=== PATIENT | male | born 1940 | race Caucasian/White ===

== ENCOUNTER 2018-03-03 11:03 | Emergency (ER) | payer MEDICARE, MEDICAID ==
[~2018-03-03] VITALS: Ht 182.9 cm; Wt 83.2 kg
[~2018-03-03 11:03] MED LIST: AMLO5TAB2 PO; FURO40TA6 PO; METO25TA35 PO; POLY17PO5 PO; POTA20PA25 PO; TAMS-11 PO
[2018-03-03] MEDS ORDERED: ALBUTEROL/IPRATROPIUM 2.5MG/0.5MG, 3 ML NPPB ONE (12:30)
[2018-03-03] MEDS ORDERED: ALBUTEROL/IPRATROPIUM 2.5MG/0.5MG, 3 ML ONE (12:32)
[2018-03-03 12:59] LABS: MICROSCOPIC AUTO
[2018-03-03 13:34] VITALS: BP 147/80
== END 2018-03-03 13:35 | disposition home or self-care (01) ==
LOC: ED 12:51
DX: N40.1 Benign prostatic hyperplasia with lower urinary tract symptoms (principal); R33.8 Other retention of urine; Z76.0 Encounter for issue of repeat prescription; J43.9 Emphysema, unspecified; I11.0 Hypertensive heart disease with heart failure; Z94.4 Liver transplant status
CPT/HCPCS: 71046; 81001; 94640; 99285; J7512; J7620

== ENCOUNTER 2018-09-09 18:13 | Inpatient (IN) | payer MEDICARE, MEDICAID ==
[~2018-09-09] VITALS: Ht 182.9 cm; Wt 80.5 kg
[~2018-09-09 18:13] MED LIST changes: -AMLO5TAB2 PO; +AMLO5TAB7 PO
[2018-09-09 19:01] LABS: BASOPHILS # (AUTO) 0.07 x10^3/uL (0-0.1); BASOPHILS % (AUTO) 1 % (0-1); EOSINOPHILS # (AUTO) 0.04 x10^3/uL (0-0.4); EOSINOPHILS % (AUTO) 1 % (1-7); LYMPHOCYTES # (AUTO) 1.33 x10^3/uL (1-3.4); LYMPHOCYTES % (AUTO) 16 % (22-44); MD NO; MEAN CORPUSCULAR HEMOGLOBIN 32.6 pg (27.5-34.5); MEAN CORPUSCULAR HGB CONC 34.3 g/dL (33.2-36.2); MEAN CORPUSCULAR VOLUME 95.1 fL (81-97); MEAN PLATELET VOLUME 8.3 fL (7.4-10.4); MONOCYTES % (AUTO) 5 % (2-9); NEUTROPHILS # (AUTO) 6.51 x10^3/uL (1.8-6.8); NEUTROPHILS % (AUTO) 78 % (42-75); PLATELET COUNT 190 x10^3/uL (130-400); RED BLOOD COUNT 4.91 x10^6/uL (4.38-5.82)
[2018-09-09 19:14] LABS: ALBUMIN 3.4 g/dL (3.4-5.0); ANION GAP 7 mmol/L (5-15); CALCIUM 8.7 mg/dL (8.5-10.1); CHLORIDE 104 mmol/L (98-107)
[2018-09-09 19:20] LABS: ALANINE AMINOTRANSFERASE 51 U/L (12-78); ALKALINE PHOSPHATASE 77 U/L (45-117); CREATININE 1.73 mg/dL (0.7-1.3); TOTAL PROTEIN 8.2 g/dL (6.4-8.2)
[2018-09-09 20:37] LABS: TROPONIN I < 0.015 ng/mL (0.000-0.045)
[2018-09-09] MEDS ORDERED: DIPHENHYDRAMINE 25 MG CAPSULE PO PRN (21:30)
[2018-09-09] MEDS ORDERED: ONDANSETRON ODT 4 MG PO PRN (21:30)
[2018-09-09] MEDS ORDERED: LIDODERM 5% PATCH TD PRN (21:30)
[2018-09-09] MEDS ORDERED: GABAPENTIN 300 MG CAPSULE PO PRN (21:30)
[2018-09-09] MEDS ORDERED: POLYETHYLENE GLYCOL 17 GM PACKET PO PRN (21:30)
[2018-09-09] MEDS ORDERED: hydrALAzine 20 MG/ML, 1ML IVPush PRN (21:30)
[2018-09-09] MEDS ORDERED: DOCUSATE 100 MG CAPSULE PO PRN (21:30)
[2018-09-09 21:55] VITALS: BP 156/87
[2018-09-09] MEDS: SODIUM CHLORIDE 0.9% 1,000 ML IV SCH (22:16)
[2018-09-09] MEDS: AMLODIPINE 5 MG TABLET PO SCH (22:17)
[2018-09-09] MEDS: HEPARIN 5,000 UNITS/ML, 1ML SQ SCH (22:17)
[2018-09-09 23:51] LABS: RAPID INFLUENZA A Negative (Negative); RAPID INFLUENZA B Negative (Negative)
[2018-09-09 23:53] LABS: HEMOGLOBIN A1C 4.6 % (4.2-6.3)
[2018-09-10 01:45] VITALS: BP 127/71
[2018-09-10] MEDS: HEPARIN 5,000 UNITS/ML, 1ML SQ SCH ×3 (05:30→20:41)
[2018-09-10] MEDS: METOPROLOL TARTRATE 25 MG TABLET PO SCH ×2 (05:45→17:38)
[2018-09-10 07:37] VITALS: BP 129/69
[2018-09-10] MEDS: TAMSULOSIN 0.4 MG CAP.ER.24H PO SCH (09:06)
[2018-09-10] MEDS: POTASSIUM CHLORIDE 20 MEQ TAB.ER.PRT PO SCH (09:06)
[2018-09-10] MEDS: AMLODIPINE 5 MG TABLET PO SCH ×2 (09:06→20:41)
[2018-09-10] MEDS: FUROSEMIDE 40 MG TABLET PO SCH (09:06)
[2018-09-10] MEDS: ALBUTEROL/IPRATROPIUM 2.5MG/0.5MG, 3 ML NPPB PRN ×2 (09:40→19:11)
[2018-09-10 12:39] VITALS: BP 152/78
[2018-09-10] MEDS: SODIUM CHLORIDE 0.9% 1,000 ML IV SCH (12:42)
[2018-09-10] MEDS ORDERED: PHARMACY MAY ADJ FOR RENAL FX MC PRN (13:00)
[2018-09-10 14:21] LABS: THYROID STIMULATING HORMONE 1.01 mIU/L (0.358-3.740)
[2018-09-10] MEDS: FOLIC ACID 1 MG TABLET PO SCH (16:10)
[2018-09-10] MEDS: THIAMINE 100MG TABLET PO SCH (16:10)
[2018-09-10] MEDS: GABAPENTIN 300 MG CAPSULE PO SCH ×2 (16:11→20:41)
[2018-09-10 20:12] VITALS: BP 145/75
[2018-09-11 01:45] VITALS: BP 144/75
[2018-09-11] MEDS: SODIUM CHLORIDE 0.9% 1,000 ML IV SCH ×2 (03:19→16:14)
[2018-09-11 05:39] VITALS: BP 138/64
[2018-09-11] MEDS: HEPARIN 5,000 UNITS/ML, 1ML SQ SCH ×3 (05:41→19:58)
[2018-09-11] MEDS: METOPROLOL TARTRATE 25 MG TABLET PO SCH ×2 (05:41→17:35)
[2018-09-11 07:37] VITALS: BP 136/67
[2018-09-11] MEDS: GABAPENTIN 300 MG CAPSULE PO SCH ×3 (08:44→19:58)
[2018-09-11] MEDS: FOLIC ACID 1 MG TABLET PO SCH (08:44)
[2018-09-11] MEDS: TAMSULOSIN 0.4 MG CAP.ER.24H PO SCH (08:44)
[2018-09-11] MEDS: FUROSEMIDE 40 MG TABLET PO SCH (08:44)
[2018-09-11] MEDS: THIAMINE 100MG TABLET PO SCH (08:44)
[2018-09-11] MEDS: POTASSIUM CHLORIDE 20 MEQ TAB.ER.PRT PO SCH (08:44)
[2018-09-11] MEDS: AMLODIPINE 5 MG TABLET PO SCH ×2 (08:44→19:58)
[2018-09-11 14:07] VITALS: BP 131/72
[2018-09-11 15:58] LABS: ANION GAP 6 mmol/L (5-15); CHLORIDE 108 mmol/L (98-107)
[2018-09-11 15:59] LABS: BASOPHILS # (AUTO) 0.04 x10^3/uL (0-0.1); BASOPHILS % (AUTO) 1 % (0-1); EOSINOPHILS # (AUTO) 0.05 x10^3/uL (0-0.4); EOSINOPHILS % (AUTO) 1 % (1-7); LYMPHOCYTES # (AUTO) 1.43 x10^3/uL (1-3.4); LYMPHOCYTES % (AUTO) 15 % (22-44); MD NO; MEAN CORPUSCULAR HEMOGLOBIN 32.9 pg (27.5-34.5); MEAN CORPUSCULAR HGB CONC 34.6 g/dL (33.2-36.2); MEAN CORPUSCULAR VOLUME 95.2 fL (81-97); MEAN PLATELET VOLUME 8.4 fL (7.4-10.4); MONOCYTES # (AUTO) 0.34 x10^3/uL (0.2-0.8); MONOCYTES % (AUTO) 4 % (2-9); NEUTROPHILS # (AUTO) 7.84 x10^3/uL (1.8-6.8); NEUTROPHILS % (AUTO) 81 % (42-75); PLATELET COUNT 171 x10^3/uL (130-400); RED BLOOD COUNT 4.01 x10^6/uL (4.38-5.82); RED CELL DISTRIBUTION WIDTH 14.5 % (9.4-14.8)
[2018-09-11] MEDS: AMITRIPTYLINE 10 MG TABLET PO SCH (19:58)
[2018-09-11 20:33] VITALS: BP 110/58
[2018-09-12 01:30] VITALS: BP 129/70
[2018-09-12 04:54] LABS: ANION GAP 6 mmol/L (5-15); CHLORIDE 110 mmol/L (98-107); CREATININE 1.42 mg/dL (0.7-1.3)
[2018-09-12 04:56] LABS: BASOPHILS # (AUTO) 0.04 x10^3/uL (0-0.1); BASOPHILS % (AUTO) 1 % (0-1); EOSINOPHILS # (AUTO) 0.12 x10^3/uL (0-0.4); EOSINOPHILS % (AUTO) 2 % (1-7); LYMPHOCYTES # (AUTO) 1.23 x10^3/uL (1-3.4); LYMPHOCYTES % (AUTO) 23 % (22-44); MD NO; MEAN CORPUSCULAR HEMOGLOBIN 31.9 pg (27.5-34.5); MEAN CORPUSCULAR HGB CONC 33.8 g/dL (33.2-36.2); MEAN CORPUSCULAR VOLUME 94.3 fL (81-97); MEAN PLATELET VOLUME 8.6 fL (7.4-10.4); MONOCYTES # (AUTO) 0.26 x10^3/uL (0.2-0.8); MONOCYTES % (AUTO) 5 % (2-9); NEUTROPHILS % (AUTO) 69 % (42-75); PLATELET COUNT 158 x10^3/uL (130-400); RED BLOOD COUNT 3.73 x10^6/uL (4.38-5.82); RED CELL DISTRIBUTION WIDTH 14.9 % (9.4-14.8)
[2018-09-12] MEDS: METOPROLOL TARTRATE 25 MG TABLET PO SCH ×2 (05:11→17:38)
[2018-09-12] MEDS: HEPARIN 5,000 UNITS/ML, 1ML SQ SCH ×3 (05:11→22:12)
[2018-09-12] MEDS: SODIUM CHLORIDE 0.9% 1,000 ML IV SCH ×2 (05:12→17:38)
[2018-09-12 07:56] VITALS: BP 123/78
[2018-09-12] MEDS: POTASSIUM CHLORIDE 20 MEQ TAB.ER.PRT PO SCH (09:37)
[2018-09-12] MEDS: FOLIC ACID 1 MG TABLET PO SCH (09:37)
[2018-09-12] MEDS: GABAPENTIN 300 MG CAPSULE PO SCH ×3 (09:38→22:12)
[2018-09-12] MEDS: THIAMINE 100MG TABLET PO SCH (09:38)
[2018-09-12] MEDS: AMLODIPINE 5 MG TABLET PO SCH ×2 (09:38→21:00)
[2018-09-12] MEDS: TAMSULOSIN 0.4 MG CAP.ER.24H PO SCH (09:38)
[2018-09-12] MEDS: FUROSEMIDE 40 MG TABLET PO SCH (09:38)
[2018-09-12 13:59] VITALS: BP 134/69
[2018-09-12 19:47] VITALS: BP 120/64
[2018-09-12 22:05] VITALS: BP 137/73
[2018-09-12] MEDS: AMITRIPTYLINE 10 MG TABLET PO SCH (22:12)
[2018-09-13 00:11] VITALS: BP 120/69
[2018-09-13 05:25] VITALS: BP 122/65
[2018-09-13] MEDS: METOPROLOL TARTRATE 25 MG TABLET PO SCH (05:27)
[2018-09-13] MEDS: HEPARIN 5,000 UNITS/ML, 1ML SQ SCH (05:28)
[2018-09-13 05:46] LABS: ANION GAP 8 mmol/L (5-15); CHLORIDE 110 mmol/L (98-107)
[2018-09-13 05:57] LABS: CALCIUM 8.6 mg/dL (8.5-10.1); CREATININE 1.53 mg/dL (0.7-1.3)
[2018-09-13 07:33] VITALS: BP 132/80
[2018-09-13] MEDS: FOLIC ACID 1 MG TABLET PO SCH (09:31)
[2018-09-13] MEDS: GABAPENTIN 300 MG CAPSULE PO SCH (09:31)
[2018-09-13] MEDS: THIAMINE 100MG TABLET PO SCH (09:31)
[2018-09-13] MEDS: FUROSEMIDE 40 MG TABLET PO SCH (09:31)
[2018-09-13] MEDS: TAMSULOSIN 0.4 MG CAP.ER.24H PO SCH (09:31)
[2018-09-13] MEDS: AMLODIPINE 5 MG TABLET PO SCH (09:31)
[2018-09-13] MEDS ORDERED: PRED20TA PO (11:05)
[2018-09-13] MEDS ORDERED: ALBU18HF INH (11:05)
[2018-09-13] MEDS ORDERED: GABA300C10 PO (11:05)
[2018-09-13] MEDS ORDERED: AMIT10TA PO (11:05)
[2018-09-13 13:54] VITALS: BP 149/93
== END 2018-09-13 14:34 | disposition home health service (06) | DRG 73 ==
LOC: ED 19:58 → EDIP 20:08 → 4EST 21:18 → UNDODISIN 09-13 13:27
PROVIDERS: ADMIT Hospitalist; ATTEND Hospitalist
DX: G62.1 Alcoholic polyneuropathy (principal); N17.0 Acute kidney failure with tubular necrosis; I13.0 Hypertensive heart and chronic kidney disease with heart failure and stage 1 through stage 4 chronic kidney disease, or unspecified chronic kidney disease; I50.32 Chronic diastolic (congestive) heart failure; R17 Unspecified jaundice; Z94.4 Liver transplant status; D69.2 Other nonthrombocytopenic purpura; F15.90 Other stimulant use, unspecified, uncomplicated; F17.200 Nicotine dependence, unspecified, uncomplicated; F32.9 Major depressive disorder, single episode, unspecified; J44.9 Chronic obstructive pulmonary disease, unspecified; N18.9 Chronic kidney disease, unspecified; N40.0 Benign prostatic hyperplasia without lower urinary tract symptoms; M72.2 Plantar fascial fibromatosis; F10.10 Alcohol abuse, uncomplicated; Y90.9 Presence of alcohol in blood, level not specified
CPT/HCPCS: 36415; 71045; 80048; 80053; 82550; 82607; 82962; 83036; 83735; 83880; 84443; 84484; 85025; 86592; 87400; 87806; 93306; 93922; 93970; 94640; 99285; G0378; J1644; J7620; G0475; J7030; J7512; Q0163

== ENCOUNTER 2018-09-26 18:09 | Inpatient (IN) | payer MEDICARE, MEDICAID ==
[~2018-09-26] VITALS: Ht 182.9 cm; Wt 75.0 kg
[~2018-09-26 18:09] MED LIST changes: +ALBU18HF INH; +AMIT10TA PO; +GABA300C10 PO; +PRED20TA PO
[2018-09-26] MEDS: SODIUM CHLORIDE 0.9% 1,000 ML IV ONE ×2 (18:16→20:00)
[2018-09-26] MEDS ORDERED: SODIUM CHLORIDE FLUSH 10ML SYR IVF ONE (18:30)
[2018-09-26] MEDS ORDERED: SODIUM CHLORIDE 0.9% 1,000ML IVBOLUS ONE (18:30)
[2018-09-26 19:19] LABS: BASOPHILS % (AUTO) 0 % (0-1); EOSINOPHILS # (AUTO) 0.07 x10^3/uL (0-0.4); EOSINOPHILS % (AUTO) 1 % (1-7); LYMPHOCYTES # (AUTO) 0.81 x10^3/uL (1-3.4); LYMPHOCYTES % (AUTO) 13 % (22-44); MD NO; MEAN CORPUSCULAR HEMOGLOBIN 32.8 pg (27.5-34.5); MEAN CORPUSCULAR VOLUME 96.4 fL (81-97); MEAN PLATELET VOLUME 8.1 fL (7.4-10.4); MONOCYTES # (AUTO) 0.15 x10^3/uL (0.2-0.8); MONOCYTES % (AUTO) 2 % (2-9); NEUTROPHILS # (AUTO) 5.43 x10^3/uL (1.8-6.8); NEUTROPHILS % (AUTO) 84 % (42-75); PLATELET COUNT 117 x10^3/uL (130-400); RED BLOOD COUNT 5.51 x10^6/uL (4.38-5.82); RED CELL DISTRIBUTION WIDTH 15.6 % (9.4-14.8)
[2018-09-26 19:20] LABS: INTERNATIONAL NORMALIZED RATIO 1.06 (0.93-1.1)
[2018-09-26 19:22] LABS: ALANINE AMINOTRANSFERASE 120 U/L (12-78); ALBUMIN 3.5 g/dL (3.4-5.0); ANION GAP 10 mmol/L (5-15); CHLORIDE 106 mmol/L (98-107); CREATININE 1.66 mg/dL (0.7-1.3)
[2018-09-26 19:27] LABS: ALKALINE PHOSPHATASE 113 U/L (45-117); BILIRUBIN,TOTAL 1.6 mg/dL (0.2-1.0); CREATINE KINASE, TOTAL 26 U/L (39-308); TOTAL PROTEIN 8.1 g/dL (6.4-8.2); TROPONIN I < 0.015 ng/mL (0.000-0.045)
[2018-09-26] MEDS ORDERED: SODIUM CHLORIDE FLUSH 10ML SYR IVF PRN (20:00)
[2018-09-26 20:11] LABS: CULTURE INDICATED? NO; MICROSCOPIC NOT IND
[2018-09-26] MEDS ORDERED: SODIUM CHLORIDE 0.9% 1,000 ML IV SCH (20:21)
[2018-09-26] MEDS ORDERED: METOPROLOL TARTRATE 25 MG TABLET PO SCH (20:30)
[2018-09-26] MEDS ORDERED: HEPARIN 5,000 UNITS/ML, 1ML SQ SCH (20:30)
[2018-09-26] MEDS ORDERED: POLYETHYLENE GLYCOL 17 GM PACKET PO PRN ×2 (20:30)
[2018-09-26] MEDS ORDERED: NICOTINE 7 MG/24 HR PATCH.TD24 TD SCH (20:30)
[2018-09-26] MEDS ORDERED: ONDANSETRON ODT 4 MG PO PRN (20:30)
[2018-09-26] MEDS ORDERED: LORazepam 2 MG/ML, 1ML IVPush ONE (20:30)
[2018-09-26] MEDS ORDERED: LORazepam 2 MG/ML, 1ML ONE (20:30)
[2018-09-26] MEDS ORDERED: BISACODYL 10 MG SUPP PR PRN (20:30)
[2018-09-26] MEDS ORDERED: hydrALAzine 20 MG/ML, 1ML IVPush PRN (20:30)
[2018-09-26] MEDS ORDERED: AMLODIPINE 5 MG TABLET PO SCH (21:00)
[2018-09-26] MEDS ORDERED: LISINOPRIL 10 MG TABLET PO SCH (21:00)
[2018-09-26] MEDS ORDERED: GABAPENTIN 300 MG CAPSULE PO SCH (21:00)
[2018-09-26] MEDS ORDERED: ALBUTEROL SULFATE 2.5 MG/3 ML NPPB SCH (21:00)
[2018-09-26] MEDS ORDERED: AMITRIPTYLINE 10 MG TABLET PO SCH (21:00)
[2018-09-26 22:30] VITALS: BP 199/85
[2018-09-27] MEDS ORDERED: POTASSIUM CHLORIDE 20 MEQ TAB.ER.PRT PO SCH (08:00)
[2018-09-27] MEDS ORDERED: FUROSEMIDE 40 MG TABLET PO SCH (09:00)
[2018-09-27] MEDS ORDERED: SENNA/DOCUSATE TABLET PO SCH (09:00)
[2018-09-27] MEDS ORDERED: TAMSULOSIN 0.4 MG CAP.ER.24H PO SCH (09:00)
== END 2018-09-27 03:00 | disposition left against medical advice (07) | DRG 77 ==
LOC: ED 19:45 → EDIP 19:55 → ED 20:23 → 4EST 21:01
PROVIDERS: ADMIT Family Medicine; ATTEND Family Medicine
DX: I67.4 Hypertensive encephalopathy (principal); N17.0 Acute kidney failure with tubular necrosis; I50.43 Acute on chronic combined systolic (congestive) and diastolic (congestive) heart failure; I13.0 Hypertensive heart and chronic kidney disease with heart failure and stage 1 through stage 4 chronic kidney disease, or unspecified chronic kidney disease; I50.40 Unspecified combined systolic (congestive) and diastolic (congestive) heart failure; R17 Unspecified jaundice; Z94.4 Liver transplant status; R62.7 Adult failure to thrive; D75.1 Secondary polycythemia; N40.0 Benign prostatic hyperplasia without lower urinary tract symptoms; J44.9 Chronic obstructive pulmonary disease, unspecified; N18.9 Chronic kidney disease, unspecified; Z87.891 Personal history of nicotine dependence; E86.0 Dehydration; M10.9 Gout, unspecified
CPT/HCPCS: 36415; 70450; 71045; 80053; 81003; 82140; 82550; 83605; 83735; 83880; 84484; 85025; 85610; 85730; 87040; 93005; 99285; G0378; J2060; J7030

== ENCOUNTER 2019-03-21 22:07 | Emergency (ER) | payer MEDICARE, MEDICAID ==
[~2019-03-21] VITALS: Ht 182.9 cm; Wt 84.9 kg
[~2019-03-21 22:07] MED LIST changes: +AMLO-150 PO; -AMLO5TAB7 PO
--- NOTE | 2019-03-21 23:05 | NUR ---
FIRST CONTACT WITH PT. PT C/O URINARY RETENTION X 5 HRS WITH BILATERAL LOWE ABD PAIN. SEEN AT [facility] FOR SAME YESTERDAY. PT'S AOX4. RESPS EVEN AND UNLABORED. PT DENIES N/V/D AT THIS TIME. BP/SPO2 MONITORS IN PLACE. CALL LIGHT WITHIN REACH. EDMD AT BEDSIDE TO ASSESS.
--- NOTE | 2019-03-21 23:06 | NUR ---
PT BLACKWELL CATH'S USING STERILE TECHNIQUE. PT TOLERATED WELL.
--- NOTE | 2019-03-21 23:48 | NUR ---
PT PROVIDED WARM BLANCKET. UA SENT.
[2019-03-21 23:58] LABS: CULTURE INDICATED? YES; MICROSCOPIC AUTO
--- NOTE | 2019-03-22 00:39 | NUR ---
PT RESTING IN [facility]. BP/SPO2 MONITORS IN PLACE. CALL LIGHT WITHIN REACH.
[2019-03-22 01:09] VITALS: BP 219/120
--- NOTE | 2019-03-22 01:10 | NUR ---
PT GIVEN DC INSTRUCTIONS. PT EDUCATED REGARDING BLACKWELL CATH AT DC. PT'S AOX4. RESPS EVEN AND UNLABORED. PT'S BP 219/120 AT DC AND EDMD OK'D TO DC WITH HBP. PT AMB TO DC WITH STEADY GAIT. NO ACUTE DISTRESS AT DC.
== END 2019-03-22 01:16 | disposition home or self-care (01) ==
LOC: ED 23:09
DX: N40.1 Benign prostatic hyperplasia with lower urinary tract symptoms (principal); R33.8 Other retention of urine; J44.9 Chronic obstructive pulmonary disease, unspecified; I13.0 Hypertensive heart and chronic kidney disease with heart failure and stage 1 through stage 4 chronic kidney disease, or unspecified chronic kidney disease; N18.9 Chronic kidney disease, unspecified; I50.9 Heart failure, unspecified; Z87.891 Personal history of nicotine dependence; Z94.4 Liver transplant status
CPT/HCPCS: 51702; 81001; 87077; 87086; 87186; 99284